=== PATIENT | female | born 2005 | race Hispanic/Latino ===

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

== ENCOUNTER → 2025-08-16 | Outpatient (REF) | payer OTHER ==
[~2025-08-16] MED LIST changes: -IBUP-1022 PO; +IBUP600T42 PO
== END ==
LOC: M SFHCLERA 17:06
PROVIDERS: ATTEND Internal Medicine
DX: J02.0 Streptococcal pharyngitis (principal)